=== PATIENT | male | born 1940 | race Caucasian/White ===

== ENCOUNTER 2021-04-19 17:14 | Emergency (ER) | payer OTHER, MEDICARE ==
[~2021-04-19] VITALS: Ht 175.3 cm; Wt 120.0 kg
[2021-04-19 17:25] VITALS: BP 156/103
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
[2021-04-19] MEDS ORDERED: HYDROcodone/APAP 5/325MG 1 TAB TABLET PO ONE (19:15)
[2021-04-19] MEDS ORDERED: HYDR-2155 PO ×2 (19:30→19:36)
== END 2021-04-19 19:43 | disposition home or self-care (01) ==
LOC: ER 17:14
DX: S22.22XA Fracture of body of sternum, initial encounter for closed fracture (principal); S80.02XA Contusion of left knee, initial encounter; E11.9 Type 2 diabetes mellitus without complications; I10 Essential (primary) hypertension; Z88.2 Allergy status to sulfonamides; V49.49XA Driver injured in collision with other motor vehicles in traffic accident, initial encounter; Y93.89 Activity, other specified; Y92.89 Other specified places as the place of occurrence of the external cause; Y99.8 Other external cause status
CPT/HCPCS: 70450; 71250; 72125; 73562; 99284; G0238